=== PATIENT | male | born 2000 | race Hispanic/Latino ===

== ENCOUNTER 2021-11-16 16:45 | Emergency (ER) | payer OTHER ==
[~2021-11-16] VITALS: Ht 177.8 cm; Wt 90.7 kg
== END 2021-11-16 18:31 | disposition home or self-care (01) ==
LOC: ED 16:45
DX: S31.21XA Laceration without foreign body of penis, initial encounter (principal); X58.XXXA Exposure to other specified factors, initial encounter
CPT/HCPCS: 99283

== ENCOUNTER 2024-01-29 10:02 | Emergency (ER) | payer OTHER ==
[~2024-01-29] VITALS: Ht 177.8 cm; Wt 106.6 kg
[2024-01-29 10:39] LABS: BASOPHILS 0.9 % (0-2); EOSINOPHILS 1.8 % (0-6); HEMATOCRIT 40.6 % (35.0-50.0); HEMOGLOBIN 14.6 g/dL (12.0-18.0); LYMPHOCYTES 37.5 % (24-44); MCH 30.4 (27-36); MCHC 35.8 g/dl (30-36); MCV 84.7 fl (81-99); MONOCYTES 11.2 % (0-12); NEUTROPHILS 48.6 % (39-80); PLATELET COUNT 222 K/uL (140-440); RDW 13.2 (10.5-15.0)
[2024-01-29 10:40] LABS: BILIRUBIN, URINE NEGATIVE (negative); BLOOD/HGB, URINE NEGATIVE (Negative); KETONE, URINE NEGATIVE (Negative); LEUK ESTERASE, URINE NEGATIVE (negative); NITRITE, URINE NEGATIVE (negative)
[2024-01-29 11:00] LABS: ACETAMINOPHEN 0 ug/mL (10-30); ALBUMIN 3.9 g/dL (3.4-5.0); ALBUMIN/GLOBULIN RATIO 1.05 (1.1-2.4); ALCOHOL, MEDICAL <3 ng/dL (<3); ALKALINE PHOSPHATASE 89 U/L (46-116); ALT (SGPT) 19 U/L (14-59); ANION GAP 11.8 (7-21); AST (SGOT) 13 U/L (15-37); BILIRUBIN, TOTAL 0.4 ng/dL (0.2-1.0); BUN/CREATININE RATIO 11.23 (6.0-28.6); CALCIUM 8.9 mg/dL (8.5-10.1); CARBON DIOXIDE 26 mmol/L (21-32); CHLORIDE 103 mmol/L (98-107); CREATININE, SERUM 0.89 mg/dL (0.70-1.30); GLOMERULAR FILTRATION RATE,EST 122 mL/min (>60); POTASSIUM 3.8 mmol/L (3.5-5.1); PROTEIN, TOTAL 7.6 g/dL (6.4-8.2); SALICYLATE 1.1 mg/dL (2.8-20.0); UREA NITROGEN 10 mg/dL (7-18)
[2024-01-29 11:02] LABS: AMPHETAMINES, URINE NEGATIVE (NEGATIVE); BARBITURATES, URINE NEGATIVE (NEGATIVE); BENZODIAZEPINE, URINE NEGATIVE (NEGATIVE); BUPRENORPHINE, URINE NEGATIVE (NEGATIVE); CANNABINOID, URINE NEGATIVE (NEGATIVE); COCAINE, URINE NEGATIVE (NEGATIVE); ECSTASY, URINE NEGATIVE (NEGATIVE); FENTANYL, URINE NEGATIVE (NEGATIVE); METHADONE, URINE NEGATIVE (NEGATIVE); OPIATES, URINE NEGATIVE (NEGATIVE); OXYCODONE, URINE NEGATIVE (NEGATIVE); PHENCYCLIDINE, URINE NEGATIVE (NEGATIVE)
[2024-01-29] MEDS ORDERED: CITALOPRAM HBR10 MG PO (11:03)
[2024-01-29] MEDS ORDERED: HALOPERIDOL20 MG PO (11:04)
[2024-01-29] MEDS ORDERED: HALOPERIDOL5 MG PO (11:05)
[2024-01-29] MEDS ORDERED: BENADRYL ALLERG50 MG PO (11:07)
[2024-01-29] MEDS ORDERED: NICOTINE POLACRILEX 4 MG LOZENGE BUCCAL PRN (21:15)
[2024-01-30] MEDS ORDERED: QUETIAPINE FUMARATE 25 MG TAB PO ONE ×2 (02:45→22:00)
[2024-01-31] MEDS ORDERED: QUETIAPINE FUMARATE 25 MG TAB PO SCH (21:00)
[2024-02-01] MEDS ORDERED: ONDANSETRON 4 MG TAB ODT SL PRN (13:15)
[2024-02-02] MEDS ORDERED: QUETIAPINE FUMARATE 100 MG TAB PO SCH (21:00)
[2024-02-06] MEDS ORDERED: ED PATIENT'S OWN MED POCKET #2 XX PRN (16:30)
[2024-02-07] MEDS ORDERED: PALIPERIDONE PALMITATE 234 MG/1.5 ML IM ONE (09:00)
[2024-02-18] MEDS ORDERED: LORazepam 1 MG TAB PO ONE (21:15)
[2024-02-20] MEDS ORDERED: LORazepam 1 MG TAB PO ONE (19:30)
[2024-02-21] MEDS ORDERED: QUETIAPINE FUMARATE 25 MG TAB PO ONE (17:15)
[2024-02-26] MEDS ORDERED: QUETIAPINE FUMARATE 100 MG TAB PO SCH
[2024-02-26 12:10] VITALS: BP 116/73
== END 2024-02-26 12:10 ==
LOC: ED 10:02
PROVIDERS: Emergency Medicine
DX: F20.9 Schizophrenia, unspecified (principal); Z79.899 Other long term (current) drug therapy
CPT/HCPCS: 36415; 80053; 80307; 81003; 84443; 85025; 96372; 99285; A9270; A9270-GY; G0480

== ENCOUNTER 2024-03-10 08:20 | Emergency (ER) | payer OTHER ==
[~2024-03-10] VITALS: Ht 177.8 cm; Wt 106.8 kg
[~2024-03-10 08:20] MED LIST: BENADRYL ALLERG50 MG PO; CITALOPRAM HBR10 MG PO; HALOPERIDOL20 MG PO; HALOPERIDOL5 MG PO
[2024-03-10 09:18] LABS: BASOPHILS 0.8 % (0-2); HEMATOCRIT 41.8 % (35.0-50.0); HEMOGLOBIN 14.3 g/dL (12.0-18.0); LYMPHOCYTES 29.5 % (24-44); MCH 30.1 (27-36); MCHC 34.2 g/dl (30-36); MCV 87.9 fl (81-99); NEUTROPHILS 56.7 % (39-80); PLATELET COUNT 245 K/uL (140-440); RBC 4.75 M/ul (4.3-5.7); RDW 13.5 (10.5-15.0)
[2024-03-10 09:44] LABS: ALBUMIN 3.6 g/dL (3.4-5.0); ALBUMIN/GLOBULIN RATIO 0.92 (1.1-2.4); ALCOHOL, MEDICAL <3 ng/dL (<3); ALKALINE PHOSPHATASE 90 U/L (46-116); ALT (SGPT) 36 U/L (14-59); ANION GAP 12.2 (7-21); AST (SGOT) 16 U/L (15-37); BILIRUBIN, TOTAL 0.4 ng/dL (0.2-1.0); BUN/CREATININE RATIO 12.03 (6.0-28.6); CALCIUM 8.5 mg/dL (8.5-10.1); CARBON DIOXIDE 28 mmol/L (21-32); CHLORIDE 103 mmol/L (98-107); CREATININE, SERUM 1.08 mg/dL (0.70-1.30); GLOMERULAR FILTRATION RATE,EST 98 mL/min (>60); POTASSIUM 4.2 mmol/L (3.5-5.1); PROTEIN, TOTAL 7.5 g/dL (6.4-8.2); TSH, 3RD GENERATION 1.229 uIU/mL (0.358-3.740); UREA NITROGEN 13 mg/dL (7-18)
[2024-03-10] MEDS ORDERED: TUBERCULIN PPD 5 UNITS/0.1 ML VIAL SUB-Q ONE (10:30)
[2024-03-10 10:46] LABS: AMPHETAMINES, URINE POSITIVE (NEGATIVE); BARBITURATES, URINE NEGATIVE (NEGATIVE); BENZODIAZEPINE, URINE POSITIVE (NEGATIVE); BUPRENORPHINE, URINE NEGATIVE (NEGATIVE); CANNABINOID, URINE NEGATIVE (NEGATIVE); COCAINE, URINE NEGATIVE (NEGATIVE); ECSTASY, URINE POSITIVE (NEGATIVE); FENTANYL, URINE NEGATIVE (NEGATIVE); METHADONE, URINE NEGATIVE (NEGATIVE); OPIATES, URINE NEGATIVE (NEGATIVE); OXYCODONE, URINE NEGATIVE (NEGATIVE); PHENCYCLIDINE, URINE NEGATIVE (NEGATIVE)
[2024-03-10 12:53] VITALS: BP 119/79
== END 2024-03-10 12:55 ==
LOC: ED 08:20
PROVIDERS: Emergency Medicine
DX: Z02.89 Encounter for other administrative examinations (principal); F20.9 Schizophrenia, unspecified; Z79.899 Other long term (current) drug therapy
CPT/HCPCS: 36415; 80053; 80307; 84443; 85025; 96372; 99284; G0480